=== PATIENT | female | born 1985 | race Caucasian/White ===

== ENCOUNTER 2017-01-18 21:17 | Emergency (ER) | payer MEDICAID ==
[~2017-01-18] VITALS: Ht 160 cm; Wt 57.2 kg
[~2017-01-18 21:17] MED LIST: FAMO-79 PO; HYDR-3240 PO; LANS30CA16 PO; LORA10CA PO; OMEP-110 PO; ONDA4TAB10 PO; OXYC-302 PO; POLY17PO5 PO; RANI150T8 PO
[2017-01-18] MEDS ORDERED: MAALOX/HYOSCYAMINE/LIDOCAINE 45 ML BTL ONE (21:51)
[2017-01-18] MEDS ORDERED: FAMOTIDINE 20 MG TABLET ONE (21:51)
[2017-01-18] MEDS ORDERED: ONDANSETRON ODT 4 MG ONE (21:56)
[2017-01-18] MEDS ORDERED: MAALOX/HYOSCYAMINE/LIDOCAINE 45 ML BTL PO ONE (22:00)
[2017-01-18] MEDS ORDERED: FAMOTIDINE 20 MG TABLET PO ONE (22:00)
[2017-01-18] MEDS ORDERED: SUCRALFATE 1 GM TABLET PO ONE (22:00)
[2017-01-18] MEDS ORDERED: ONDANSETRON ODT 4 MG PO ONE (22:00)
[2017-01-18 22:08] LABS: HEMATOCRIT 44.9 % (34.6-47.8); HEMOGLOBIN 15.1 g/dL (11.7-16.4); WHITE BLOOD COUNT 7.5 x10^3/uL (3.4-10)
[2017-01-18 22:18] LABS: ASPARTATE AMINO TRANSFERASE 15 U/L (15-37); BLOOD UREA NITROGEN 13 mg/dL (7-18)
[2017-01-18] MEDS ORDERED: LANS30CA16 PO (22:31)
[2017-01-18] MEDS ORDERED: RANI150T8 PO (22:31)
[2017-01-18 22:32] VITALS: BP 122/78
== END 2017-01-18 23:06 | disposition home or self-care (01) ==
LOC: ED 23:01
DX: K29.00 Acute gastritis without bleeding (principal); K21.9 Gastro-esophageal reflux disease without esophagitis; O24.419 Gestational diabetes mellitus in pregnancy, unspecified control
CPT/HCPCS: 36415; 80053; 81003; 83690; 84703; 85025; 99284; Q0162

== ENCOUNTER 2017-05-15 13:37 | Emergency (ER) | payer MEDICAID ==
[~2017-05-15] VITALS: Ht 160 cm; Wt 54.5 kg
[~2017-05-15 13:37] MED LIST changes: -LANS30CA16 PO; +LANS30CA60 PO
[2017-05-15 13:39] VITALS: BP 150/88
[2017-05-15] MEDS ORDERED: BACITRACIN ZINC OINT 500U/GM, 0.9 GM ONE ×2 (14:21→14:44)
== END 2017-05-15 15:15 | disposition home or self-care (01) ==
LOC: ED 14:11
DX: S91.002A Unspecified open wound, left ankle, initial encounter (principal); K21.9 Gastro-esophageal reflux disease without esophagitis; X58.XXXA Exposure to other specified factors, initial encounter; Y93.89 Activity, other specified; Y92.009 Unspecified place in unspecified non-institutional (private) residence as the place of occurrence of the external cause; Y99.8 Other external cause status
CPT/HCPCS: 99283

== ENCOUNTER 2019-12-27 12:16 | Emergency (ER) | payer SELFPAY ==
[~2019-12-27] VITALS: Ht 160 cm; Wt 57.2 kg
[~2019-12-27 12:16] MED LIST changes: +RANI-467 PO; -RANI150T8 PO
[2019-12-27 12:18] VITALS: BP 141/61
--- NOTE | 2019-12-27 12:28 | NUR ---
TO ED ROOM PER WC
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
== END 2019-12-27 13:38 | disposition home or self-care (01) ==
LOC: ED 13:00
DX: L03.115 Cellulitis of right lower limb (principal); L03.114 Cellulitis of left upper limb; F17.290 Nicotine dependence, other tobacco product, uncomplicated
CPT/HCPCS: 93005; 99283

== ENCOUNTER 2020-03-07 22:12 | Emergency (ER) | payer SELFPAY ==
[~2020-03-07] VITALS: Ht 160 cm; Wt 53.5 kg
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
[2020-03-07] MEDS ORDERED: DIPHENHYDRAMINE 25 MG CAPSULE PO ONE (23:00)
[2020-03-07] MEDS ORDERED: DIPHENHYDRAMINE 50 MG CAPSULE ONE (23:09)
[2020-03-07 23:12] VITALS: BP 114/81
--- NOTE | 2020-03-07 23:13 | NUR ---
PT MEDICATED PER MAR, MONITORING IN PLACE, CALL LIGHT WITHIN REACH.
== END 2020-03-07 23:44 | disposition home or self-care (01) ==
LOC: ED 23:00
DX: T78.49XA Other allergy, initial encounter (principal); T63.441A Toxic effect of venom of bees, accidental (unintentional), initial encounter; Y92.89 Other specified places as the place of occurrence of the external cause
CPT/HCPCS: 99283; J7512; Q0163

== ENCOUNTER 2020-05-30 17:18 | Emergency (ER) | payer SELFPAY ==
[~2020-05-30] VITALS: Ht 160 cm; Wt 65.0 kg
[2020-05-30 17:23] VITALS: BP 129/54
--- NOTE | 2020-05-30 19:37 | NUR ---
pt to room from lobby
--- NOTE | 2020-05-30 20:34 | NUR ---
SLING TO [facility] ARM
== END 2020-05-30 20:36 | disposition home or self-care (01) ==
LOC: ED 20:30
DX: S43.401A Unspecified sprain of right shoulder joint, initial encounter (principal); K21.9 Gastro-esophageal reflux disease without esophagitis; F17.210 Nicotine dependence, cigarettes, uncomplicated; Z98.51 Tubal ligation status; V87.8XXA Person injured in other specified noncollision transport accidents involving motor vehicle (traffic), initial encounter; Y93.89 Activity, other specified; Y92.488 Other paved roadways as the place of occurrence of the external cause; Y99.8 Other external cause status
CPT/HCPCS: 99284; 99406

== ENCOUNTER 2020-08-25 22:37 | Emergency (ER) | payer SELFPAY ==
[~2020-08-25] VITALS: Ht 160 cm; Wt 55.4 kg
[~2020-08-25 22:37] MED LIST changes: +HYDR-1067 PO; -HYDR-3240 PO; -OXYC-302 PO; +OXYC1TAB14 PO
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
[2020-08-26] MEDS ORDERED: ACETAMINOPHEN 500 MG TABLET PO ONE
[2020-08-26] MEDS ORDERED: AZITHROMYCIN 500 MG TABLET ONE (00:43)
[2020-08-26] MEDS ORDERED: CEFTRIAXONE 1,000 MG ONE (00:43)
[2020-08-26] MEDS ORDERED: ACETAMINOPHEN 500 MG TABLET ONE (00:43)
[2020-08-26 00:47] LABS: CLUE CELLS NONE SEEN (NONE SEEN); WET PREP WBCS MODERATE (FEW)
[2020-08-26] MEDS ORDERED: AZITHROMYCIN 500 MG TABLET PO ONE (01:00)
[2020-08-26] MEDS ORDERED: CEFTRIAXONE 1,000 MG IM ONE ×2 (01:00)
[2020-08-26] MEDS ORDERED: HYDROmorphone 1 MG/ML, 1ML INJ IM ONE (01:00)
[2020-08-26] MEDS ORDERED: ONDANSETRON ODT 4 MG PO ONE (01:00)
--- NOTE | 2020-08-26 01:06 | NUR ---
Report received from TAMMI Minaya. This RN to assume care.
[2020-08-26 01:13] LABS: MICROSCOPIC INDICATED
[2020-08-26] MEDS ORDERED: HYDROmorphone 1 MG/ML, 1ML INJ ONE (02:01)
[2020-08-26] MEDS ORDERED: ONDANSETRON ODT 4 MG ONE (02:01)
[2020-08-26 02:05] VITALS: BP 119/65
--- NOTE | 2020-08-26 03:03 | NUR ---
Discharge instructions given. All questions and concerns addressed. Patient ambulatory with a steady gait. Belongings with patient.
== END 2020-08-26 03:05 | disposition home or self-care (01) ==
LOC: ED 08-26 00:48
DX: A59.09 Other urogenital trichomoniasis (principal); N89.8 Other specified noninflammatory disorders of vagina; N90.89 Other specified noninflammatory disorders of vulva and perineum; F10.10 Alcohol abuse, uncomplicated; F15.10 Other stimulant abuse, uncomplicated; F12.10 Cannabis abuse, uncomplicated; R30.0 Dysuria; R10.2 Pelvic and perineal pain; K21.9 Gastro-esophageal reflux disease without esophagitis; F17.210 Nicotine dependence, cigarettes, uncomplicated; Z98.51 Tubal ligation status; Y90.9 Presence of alcohol in blood, level not specified
CPT/HCPCS: 81001; 81025; 87086; 87210; 87491; 87591; 87808; 96372; 99284; 99406; J0696; J1170